=== PATIENT | female | born 1995 | race Caucasian/White ===

== ENCOUNTER 2019-04-22 02:59 | Emergency (ER) | payer OTHER, SELFPAY ==
[2019-04-22 02:59] VITALS: BP 128/79; PULSE 111; RESP 16; TEMP 36.5; O2SAT 99; BMI 28.2
--- NOTE | 2019-04-22 04:36 | ED.VIS.GEN ---
History of Present Illness Chief Complaint: Eye Problem Narrative: Patient is a 23-year-old female who presents with bilateral eye pain. She woke about 2-1/2 hours ago with bilateral eye burning and redness. She also has a history of some allergies and has had some nasal and sinus congestion. 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 She has not had any other UV exposure. She has not been outside in the right sunlight a lot. She does not wear contacts. Past Medical History - Allergies and Home Meds Allergies/Adverse Reactions: Allergies No Known Allergies Allergy (Verified 04/22/19 03:02) Primary Care Physician: Care Physician,No Primary [Primary Care Provider] - Past Medical History: - - Depression Smoking Status: Never smoker Review of Systems All systems negative except as indicated General: Denies: Fever Eyes: Reports: - - Bilateral eye redness and burning Cardiovascular: Denies: Chest pain Respiratory: Denies: Dyspnea Gastrointestinal: Denies: Vomiting Physical Exam Vital Signs/Narrative: Vital Signs Temp Pulse Resp BP Pulse Ox 04/22/19 02:59 97.7 F L 111 H 16 128/79 H 99 Head: Normocephalic Eyes: - - Bilateral conjunctival injection, pupils are equally round and reactive to light, extraocular motion intact without pain or palsy, anterior chamber is deep and quiet, no periorbital edema ENT: Moist mucous membranes Neck: Supple Cardiovascular: Regular rate Respiratory: No distress Abdomen: Soft Skin: Normal color Neurological: Alert Diagnostic/Tx/Re-eval - Medical Decision Making Patient use some dry eye drops and took Tylenol and her symptoms are actually improving. She does not have any history of trauma or potential injury. She does not have a foreign body sensation. Her findings are most consistent with conjunctivitis. She will be treated with ophthalmic antibiotics and discharged home. ED Disposition - Plan for ED Patient: Disposition: Home or Assisted Living Diagnosis: Conjunctivitis Instructions: CONJUNCTIVITIS, Bacterial Referrals: Care Physician,No Primary [Primary Care Provider] - Aaron Cornell MD [STAFF PHYSICIAN] - Additional Instructions: Follow-up with ophthalmology if symptoms do not improve.
[2019-04-22] MEDS: Neomycin/Bacitracin/Polymyxin Opth. Ointment 1 APPLIC OPHTHALMIC (04:56)
[2019-04-22 04:57] VITALS: RESP 16
== END 2019-04-22 04:57 | disposition home or self-care (01) ==
PROVIDERS: Emergency Provider Emergency Medicine
DX: H10.9 Unspecified conjunctivitis (principal); F32.9 Major depressive disorder, single episode, unspecified; Z79.899 Other long term (current) drug therapy
CPT/HCPCS: 99282

== ENCOUNTER 2019-06-11 12:09 | Emergency (ER) | payer OTHER, SELFPAY ==
[2019-06-11 12:13] VITALS: BP 134/82; PULSE 115; RESP 18; TEMP 36.8; O2SAT 97; BMI 26.5
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
[2019-06-11 12:56] LABS: Amphetamine Urine VISTA NEGATIVE (<1000 ng/mL); Barbiturate Urine VISTA NEGATIVE (< 200 ng/mL); Benzodiazepine Urine VISTA NEGATIVE (< 200 ng/mL); Cocaine Urine VISTA NEGATIVE (< 300 ng/mL); Ecstacy Urine VISTA NEGATIVE (< 500 ng/mL); Methadone Urine VISTA NEGATIVE (< 300 ng/mL); PCP Urine VISTA NEGATIVE (< 25 ng/mL); THC Urine VISTA NEGATIVE (< 50 ng/mL); Vista UDS pH Range 6
[2019-06-11 13:33] VITALS: RESP 16
== END 2019-06-11 13:33 | disposition home or self-care (01) ==
PROVIDERS: Emergency Provider Emergency Medicine
DX: R41.0 Disorientation, unspecified (principal); R11.10 Vomiting, unspecified; R51 Headache; Z79.899 Other long term (current) drug therapy
CPT/HCPCS: 80307; 99282